=== PATIENT | female | born 1940 | race Caucasian/White ===

== ENCOUNTER → 2016-12-23 | Outpatient (CLI) | payer OTHER | LOC: RAD 05:16 | DX: Z12.31 Encounter for screening mammogram for malignant neoplasm of breast (principal) ==

== ENCOUNTER → 2018-05-25 | Outpatient (CLI) | payer OTHER | LOC: RAD 01:18 | DX: Z12.31 Encounter for screening mammogram for malignant neoplasm of breast (principal) ==

== ENCOUNTER → 2020-09-10 | Outpatient (CLI) | payer OTHER | LOC: SJCVC 10:32 | PROVIDERS: ATTEND Internal Medicine Cardiovascular Disease | DX: I10 Essential (primary) hypertension (principal); R07.89 Other chest pain; E78.00 Pure hypercholesterolemia, unspecified; E78.1 Pure hyperglyceridemia; Z79.899 Other long term (current) drug therapy ==

== ENCOUNTER → 2020-10-04 | Outpatient (CLI) | payer OTHER | LOC: RAD 07:54 | PROVIDERS: ATTEND Internal Medicine | DX: Z12.31 Encounter for screening mammogram for malignant neoplasm of breast (principal) ==

== ENCOUNTER → 2020-10-09 | Outpatient (CLI) | payer OTHER ==
[~2020-10-09] MED LIST: ASA81BEC PO; LOSARTAN-HCTZ1 EAC3 PO; PLAVIX 75 MG TA75 M1 PO; TOPROL XL25 MG PO
== END ==
LOC: SJCVCIMAG 10:26
PROVIDERS: ATTEND Internal Medicine Cardiovascular Disease
DX: I65.22 Occlusion and stenosis of left carotid artery (principal); I08.1 Rheumatic disorders of both mitral and tricuspid valves; I10 Essential (primary) hypertension; E78.00 Pure hypercholesterolemia, unspecified; E78.1 Pure hyperglyceridemia; Z79.899 Other long term (current) drug therapy

== ENCOUNTER → 2020-10-17 | Outpatient (CLI) | payer OTHER ==
[~2020-10-17] VITALS: Ht 167.6 cm; Wt 59.0 kg
[2020-10-17 07:31] LABS: HEMOGLOBIN 14.4 gm/dL (12.0-15.0); MCH 30.3 pg (26.0-34.0); MCHC 32.8 g/dL (28.0-37.0); MCV 92.5 fL (80.0-100.0); RBC 4.76 mil/uL (4.20-5.00); RDW 12.1 % (10.5-14.5); WBC 7.3 thou/uL (4.0-11.0)
[2020-10-17 07:32] LABS: CALCIUM 9.4 mg/dL (8.5-10.1); CREATININE 1.1 mg/dL (0.6-1.0); POTASSIUM 3.7 mmol/L (3.5-5.1)
--- NOTE | 2020-10-17 07:46 | EKG ---
[facility] [place] [address] ELECTROCARDIOGRAM REPORT Name: LEON JAIME Room #: REG [facility]#: [id number] Admission: 10/17/20 Attend Phys: [place] Wagner MD, Discharge: Date of : 40 Report #: [id number] THIS REPORT FOR: cc: Lynn Chan MD, Yvette L. MD Lundgren, Craig H. MD [facility] ~ THIS REPORT FOR: //name// [facility] Test Date: 2020-10-17 Test Time: 07:21:34 Pat Name: LEON JAIME Department: Room: Gender: F Billing And Quality Technician: JAI : 1940 Requested By: [place] Wagner Order Number: [id number] MD: Henrik Denton Measurements Intervals [place] Rate: 73 P: 76 MS: 190 QRS: -9 QRSD: 107 T: 69 QT: 406 QTc: 448 Interpretive Statements Sinus rhythm Atrial premature complex RSR' in V1 or V2, probably normal variant No previous ECG available for comparison Electronically Signed On 10-17-2020 7:46:37 DESK TOP PUBLISHER by Henrik Denton [email or web address] <ELECTRONICALLY SIGNED> By: Henrik Denton MD, FAC 10/17/20 0746 0 0 Henrik Denton MD, [facility] /EPI
--- NOTE | 2020-10-18 18:06 | CATHLAB ---
[facility] [place] [address] [place] [address] INVASIVE PROCEDURE REPORT Name: LEON JAIME Room #: REG JOURDAN JimenezSara#: [id number] Admission: 10/17/20 Attend Phys: [place] Wagner MD, Discharge: Date of : 40 Report #: [id number] THIS REPORT FOR: cc: Lynn Chan MD, Yvette L. MD Mancuso, Gerald M. MD [facility] ~ APPROVED REPORT Study performed: 10/17/2020 07:33:07 Patient Details Patient Status: Out-Patient Room #: The patient is a 80 year-old female Event Personnel [place] Wagner Human Machine Interface Engineer, Kendall Davenport RN RN, Margie Gardner Monitor, Jennifer Rizzo RTR Scrub Procedures Performed Art Access - R femoral artery* Marty Access - R femoral vein Right and Left Heart Cath w/or w/o Coronarie [id number] [place] [address] Initial Mod Sed Same Phys/QHP Gr5y [id number] 61742 Mod Sed Same Phys/QHP Ea 835219 Hemostasis w/ Mynx Indication Chest pain Procedure Narrative The Right Groin 20 ML^ was infiltrated with subcutaneous anesthesia. A PINNACLE 7FR Sheath #[id number] sheath was inserted into the RFV 7F^. Coronary angiography was performed using coronary diagnostic catheters. The right coronary system was accessed and visualized with a JR4 catheter. The left coronary system was accessed and visualized with a JL4 catheter. The left ventricle was accessed and visualized with a STR PIG catheter. Left ventriculogram was performed in 30 degree projection. The patient tolerated the procedure well and there were no complications associated with the procedure. There was no hematoma. MANUAL HOLD FOR THE VENOUS Intraoperative Conscious Sedation Sedation start time: 907 Case end Time: 944 Fentanyl 50 mcg Versed 1 mg [facility] [place] [address] INVASIVE PROCEDURE REPORT Name: LEON JAIME Room #: [facility] Radha#: [id number] Admission: 10/17/20 Attend Phys: [place] Wagner, Discharge: Date of : 40 Report #: [id number] Fluoro Time: 6.90 minutes Dose: DAP 6599.80 cGycm2 1141 mGy Contrast Type and Amount: Omnipaque 135 ml Hemodynamics The right atrial mean pressure is 11 mmHg. The right ventricular pressure is 34/-5 mmHg. The pulmonary artery pressure is 35/5 mmHg with a mean of 16 mmHg. The mean pulmonary capillary wedge pressure is 12 mmHg. The aortic pressure is 167/74 mmHg with a mean of 123 mmHg. The left ventricular pressure is 151/12 mmHg with a mean of mmHg. The left ventricular end diastolic pressure is 38 mmHg. The cardiac output using thermo method is 3.80 L/min. The cardiac index using thermo method is 2.28 L/min/m2. PCI Technique Lesion Percutaneous coronary intervention was performed on the Common iliac. Conclusion #1. Successful right heart catheterization with cardiac output by thermodilution. See above hemodynamics. #2 left main free of disease giving rise to LAD and circumflex. #3 LAD proximal calcification wild diffuse disease no occlusive disease. Proximal LAD lesion of 30 to 40%. #4 circumflex OM dominant vessel no significant occlusive disease #5 small nondominant right coronary artery patent #6 hyperdynamic LV function EF 60% Recommendations and plan: Continue aggressive risk factor modification. No significant occlusive coronary disease. Tortuous and calcified right external iliac. Will have Dr. Griffiths of interventional radiology consider a external iliac stent here flow is not limited but significant calcified disease exist. No indication for coronary intervention. <ELECTRONICALLY SIGNED> By: [place] Wagner MD, FACC 10/18/201805 05 05 [place] Wagner MD, FACC /INF
== END | disposition home or self-care (01) ==
LOC: CATH 10-12 06:20
PROVIDERS: ATTEND Internal Medicine Cardiovascular Disease
DX: R07.9 Chest pain, unspecified (principal); I25.10 Atherosclerotic heart disease of native coronary artery without angina pectoris; I70.211 Atherosclerosis of native arteries of extremities with intermittent claudication, right leg; I10 Essential (primary) hypertension; E78.1 Pure hyperglyceridemia; E78.00 Pure hypercholesterolemia, unspecified; Z98.890 Other specified postprocedural states; Z79.899 Other long term (current) drug therapy; Z88.0 Allergy status to penicillin; Z88.8 Allergy status to other drugs, medicaments and biological substances

== ENCOUNTER → 2021-01-25 | Outpatient (CLI) | payer OTHER | LOC: SJCVCIMAG 07:59 | PROVIDERS: ATTEND Internal Medicine Cardiovascular Disease | DX: I25.10 Atherosclerotic heart disease of native coronary artery without angina pectoris (principal); I10 Essential (primary) hypertension; I73.9 Peripheral vascular disease, unspecified; M79.604 Pain in right leg; E78.00 Pure hypercholesterolemia, unspecified; I65.23 Occlusion and stenosis of bilateral carotid arteries; M81.0 Age-related osteoporosis without current pathological fracture; Z86.16 Personal history of COVID-19; Z79.899 Other long term (current) drug therapy; Z88.1 Allergy status to other antibiotic agents; Z88.0 Allergy status to penicillin ==

== ENCOUNTER → 2021-07-30 | Outpatient (CLI) | payer OTHER | LOC: SJCVCIMAG 08:16 | PROVIDERS: ATTEND Internal Medicine Cardiovascular Disease | DX: R94.31 Abnormal electrocardiogram [ECG] [EKG] (principal); I25.10 Atherosclerotic heart disease of native coronary artery without angina pectoris; E78.00 Pure hypercholesterolemia, unspecified; I11.0 Hypertensive heart disease with heart failure; R73.9 Hyperglycemia, unspecified; I73.9 Peripheral vascular disease, unspecified; Z86.16 Personal history of COVID-19; Z79.899 Other long term (current) drug therapy; Z88.0 Allergy status to penicillin; Z88.1 Allergy status to other antibiotic agents ==